=== PATIENT | female | born 1975 | race Caucasian/White ===

== ENCOUNTER 2017-05-06 22:14 | Inpatient (IN) | payer BC, OTHER ==
[~2017-05-06] VITALS: Ht 171.5 cm; Wt 66.0 kg
[2017-05-06 22:29] VITALS: O2SAT 97
[2017-05-06] MEDS ORDERED: SODIUM CHLORIDE 0.9% 1000ML 1,000 ML IV STA (23:22)
[2017-05-06] MEDS ORDERED: CARB200T PO (23:25)
[2017-05-06] MEDS ORDERED: ALPR-411 PO (23:25)
[2017-05-06] MEDS ORDERED: LEVO50TA6 PO (23:25)
[2017-05-06] MEDS ORDERED: MULTTAB58 PO (23:25)
[2017-05-06] MEDS ORDERED: RANI300T2 PO (23:25)
[2017-05-06] MEDS ORDERED: SERT100T PO (23:26)
[2017-05-06] MEDS ORDERED: SERT50TA PO (23:26)
[2017-05-06] MEDS ORDERED: PRT/20 PO (23:26)
[2017-05-06] MEDS ORDERED: SYMIN160 INH (23:28)
[2017-05-06] MEDS ORDERED: TIOT1AER2 INH (23:28)
[2017-05-06] MEDS ORDERED: VNTHFA/IN INH (23:28)
[2017-05-06] MEDS ORDERED: LURA40TA PO (23:28)
[2017-05-06 23:44] LABS: BASO % 0.9 %; BASO ABS # 0.07 K/uL (0-0.2); EOS % 4.3 %; EOS ABS # 0.32 K/uL (0-0.5); HEMATOCRIT 40.2 % (37-47); HEMOGLOBIN 13.9 g/dL (12.0-16.0); IG# 0.02 K/uL (0.00-0.02); LYMPH % 36.8 %; LYMPH ABS # 2.73 K/uL (1.2-3.4); MEAN CELL VOLUME 90.1 fL (80-100); MEAN CORPUSCULAR HEMOGLOBIN 31.2 pg (25-34); MEAN CORPUSCULAR HGB CONC 34.6 g/dl (32-36); MEAN PLATELET VOLUME 9.9 fL (7.4-10.4); MONO % 10.4 %; MONO ABS # 0.77 K/uL (0.11-0.59); NEUT % 47.3 %; PLATELET COUNT 312 K/uL (130-400); RED CELL DISTRIBUTION WIDTH CV 12.2 % (11.5-14.5); RED CELL DISTRIBUTION WIDTH SD 40.4 fL (36.4-46.3); WHITE BLOOD COUNT 7.41 K/uL (4.8-10.8)
--- NOTE | 2017-05-06 23:46 | EMERGENCY ROOM VISIT NOTE ---
History Report prepared by Ronnie: Jered Rodas Under the Supervision of: Dr. Britney Gillespie M.D. First contact with patient: 23:18 Chief Complaint: OVERDOSE (INTENTIONAL) Stated Complaint: OVERDOSE History of Present Illness The patient is a 41 year old female who presents to the Emergency Room with complaints of a Xanax overdose occurring around 1999. The patient states that she took 20 tabs of 0.5mg Xanax, and she drank a bottle of wine by herself at 8 PM. The patient states that her mom was diagnosed with pancreatic cancer, and the patient states that she has been getting worse. She states that she normally has 0-1 tabs Xanax per day on a regular basis. The patient's friend and primary provider states that she has half of the patient's prescription due to suicidal statements. Per the primary care provider, the patient has been having suicidal ideations for the past month since her mother got worse, and the primary care provider states that the patient posted a statement on Facebook implying intense and overdose this evening. The patient states that she did this to try to kill herself, but has never tried to harm herself previously. The patient denies any vomiting or any cutting or injuring herself. She denies any chance of , and she states that she does not normally drink, and she has not taken any other substances. She has a history of severe asthma and bipolar disorder. The PCP at the bedside also states she treats these illnesses. Source of History: patient Onset: 1999 Position: other (global) Quality: other (overdose) Timing: other (persistent) Associated Symptoms: No vomiting Note: Associated symptoms: Suicidal ideation. Review of Systems See HPI for pertinent positives & negatives. A total of 10 systems reviewed and were otherwise negative. Past Medical & Surgical Medical Problems: (1) Asthma (2) Bipolar disorder Social History Smoking Status: Never Smoker Marital Status: Housing Status: lives alone Occupation Status: employed Current/Historical Medications Scheduled Budesonide/Formoterol Fumarate (Symbicort 160/4.5 Inhaler ), 2 PUFFS INH HS Carbamazepine (Tegretol), 600 MG PO BID Levothyroxine Sodium (Levothyroxine Sodium), 1 TAB PO DAILY Lurasidone Hcl (Latuda), 40 MG PO HS Multiple Vitamin (Multivitamin), 1 TAB PO DAILY Oxcarbazepine (Trileptal), 600 MG PO BID Pantoprazole (Protonix), 20 MG PO BID Ranitidine Hcl (Zantac), 300 MG PO HS Sertraline Hcl (Zoloft), 50 MG PO HS Sertraline Hcl (Zoloft), 100 MG PO HS Tiotropium Sophia (Spiriva Respimat), 2 PUFFS INH HS Scheduled PRN Albuterol Hfa (Ventolin Hfa), 2 PUFFS INH Q6H PRN for SOB/Wheezing Alprazolam (Xanax), 0.5 MG PO TID PRN for Anxiety Allergies Coded Allergies: Sulfa Antibiotics (Verified Allergy, Severe, HIVES, 05/06/17) Erythromycin (Verified Allergy, Unknown, ANAPHYLAXIS, 05/06/17) Ibuprofen (Verified Allergy, Unknown, ANAPHYLAXIS, 05/06/17) Physical Exam Vital Signs Date Time Temp Pulse Resp B/P (MAP) Pulse Ox O2 Delivery O2 Flow Rate FiO2 05/07/17 07:44 81 05/07/17 07:28 88 18 106/59 96 Room Air 05/07/17 03:05 88 05/07/17 02:54 99 16 122/65 98 Room Air 05/07/17 00:05 92 14 97 05/07/17 00:00 112/70 05/06/17 23:50 98 20 96 05/06/17 23:45 114/73 05/06/17 23:35 98 17 97 05/06/17 23:30 117/77 05/06/17 23:20 101 15 96 05/06/17 23:15 118/72 05/06/17 23:05 97 14 97 05/06/17 23:01 94 05/06/17 23:01 121/75 05/06/17 22:50 101 21 05/06/17 22:45 103/63 05/06/17 22:44 102 18 96 05/06/17 22:30 123/73 05/06/17 22:29 97 Room Air 05/06/17 22:29 37.4 97 14 123/73 97 Room Air 05/06/17 22:28 121/71 05/06/17 22:16 126/74 Physical Exam Vital signs reviewed. General: Sedate but answering questions appropriately. HEENT: No scleral icterus, PERRLA, neck supple. Atraumatic. Cardiovascular: Regular rate and rhythm, no extra sounds. Pulmonary: Clear to auscultation bilaterally, normal work of breathing. Abdomen: Soft, nontender, nondistended, positive bowel sounds. Musculoskeletal: Atraumatic, no peripheral edema. Neurologic: Patient awake, drowsy but oriented x 3, speech is clear. Skin: Warm, dry, no rash Psych: Positive SI. Negative HI. Medical Decision & Procedures Laboratory Results 05/06/17 22:30 Red Blood Count 4.46, Mean Corpuscular Volume 90.1, Mean Corpuscular Hemoglobin 31.2, Mean Corpuscular Hemoglobin Concent 34.6, Mean Platelet Volume 9.9, Neutrophils (%) (Auto) 47.3, Lymphocytes (%) (Auto) 36.8, Monocytes (%) (Auto) 10.4, Eosinophils (%) (Auto) 4.3, Basophils (%) (Auto) 0.9, Neutrophils # (Auto ) 3.50, Lymphocytes # (Auto) 2.73, Monocytes # (Auto) 0.77, Eosinophils # (Auto ) 0.32, Basophils # (Auto) 0.07 05/06/17 22:30 Test 05/06/17 22:30 05/07/17 03:11 White Blood Count 7.41 K/uL (4.8-10.8) Red Blood Count 4.46 M/uL (4.2-5.4) Hemoglobin 13.9 g/dL (12.0-16.0) Hematocrit 40.2 % (37-47) Mean Corpuscular Volume 90.1 fL (80-100) Mean Corpuscular Hemoglobin 31.2 pg (25-34) Mean Corpuscular Hemoglobin Concent 34.6 g/dl (32-36) Platelet Count 312 K/uL (130-400) Mean Platelet Volume 9.9 fL (7.4-10.4) Neutrophils (%) (Auto) 47.3 % Lymphocytes (%) (Auto) 36.8 % Monocytes (%) (Auto) 10.4 % Eosinophils (%) (Auto) 4.3 % Basophils (%) (Auto) 0.9 % Neutrophils # (Auto) 3.50 K/uL (1.4-6.5) Lymphocytes # (Auto) 2.73 K/uL (1.2-3.4) Monocytes # (Auto) 0.77 K/uL (0.11-0.59) Eosinophils # (Auto) 0.32 K/uL (0-0.5) Basophils # (Auto) 0.07 K/uL (0-0.2) RDW Standard Deviation 40.4 fL (36.4-46.3) RDW Coefficient of Variation 12.2 % (11.5-14.5) Immature Granulocyte % (Auto) 0.3 % Immature Granulocyte # (Auto) 0.02 K/uL (0.00-0.02) Anion Gap 10.0 mmol/L (3-11) Est Creatinine Clear Calc Drug Dose 102.9 ml/min Estimated GFR () 124.7 Estimated GFR (Non- 107.6 BUN/Creatinine Ratio 9.5 (10-20) Calcium Level 9.1 mg/dl (8.5-10.1) Total Bilirubin 0.2 mg/dl (0.2-1) Direct Bilirubin < 0.1 mg/dl (0-0.2) Aspartate Amino Transf (AST/SGOT) 13 U/L (15-37) Alanine Aminotransferase (ALT/SGPT) 23 U/L (12-78) Alkaline Phosphatase 77 U/L (45-117) Total Protein 7.2 gm/dl (6.4-8.2) Albumin 4.2 gm/dl (3.4-5.0) Thyroid Stimulating Hormone (TSH) 2.660 uIu/ml (0.300-4.500) Salicylates Level < 1.7 mg/dl (2.8-20) Acetaminophen Level < 2 ug/ml (10-30) Ethyl Alcohol mg/dL 55.5 mg/dl (0-3) Urine Color YELLOW Urine Appearance CLEAR (CLEAR) Urine pH 6.5 (4.5-7.5) Urine Specific [place] 1.008 (1.000-1.030) Urine Protein NEG (NEG) Urine Glucose (UA) NEG (NEG) Urine Ketones NEG (NEG) Urine Occult Blood NEG (NEG) Urine Nitrite NEG (NEG) Urine Bilirubin NEG (NEG) Urine Urobilinogen NEG (NEG) Urine Leukocyte Esterase NEG (NEG) Urine Test NEG (NEG) Urine Opiates Screen NEG (NEG) Urine Methadone, Qualitative NEG (NEG) Urine Barbiturates NEG (NEG) Urine Phencyclidine (PCP) Level NEG (NEG) Ur Amphetamine/Methamphetamine NEG (NEG) MDMA (Ecstasy) Screen NEG (NEG) Urine Benzodiazepines Screen POS (NEG) Urine Cocaine Metabolite NEG (NEG) Urine Marijuana (THC) NEG (NEG) Laboratory results per my review. Medications Administered Medications (Trade) Dose Ordered Sig/Lita Route Start Time Stop Time Status Last Admin Dose Admin Sodium Chloride 1,000 ml @ 999 mls/hr Q1H1M STAT IV 05/06/17 23:22 05/07/17 00:22 DC 05/07/17 00:10 999 MLS/HR Potassium Chloride (Klor-Con M10) 40 meq NOW STAT PO 05/07/17 02:43 05/07/17 02:44 DC 05/07/17 02:54 40 MEQ Tiotropium Sophia (Spiriva Handihaler Inhaler) 2 puff NOW STAT INH 05/07/17 03:49 05/07/17 03:51 DC 05/07/17 06:34 2 PUFF Budesonide/ Formoterol Fumarate (Symbicort 160/ 4.5 Inh) 2 puffs NOW STAT INH 05/07/17 03:49 05/07/17 03:51 DC 05/07/17 06:34 2 PUFFS ECG Indication: toxicologic Rate (beats per minute): 92 Rhythm: normal sinus Findings: no acute ischemic change, no ectopy, other (Previous septal infarct) Change: Patient's electrocardiogram interpreted by me. ED Course 2318: Past medical records reviewed. The patient was evaluated in room C11. A complete history and physical examination was performed. 0054: The patient has been medically cleared. 2322: Sodium Chloride 1000 ml @ 999 mls/hr IV 0243: Potassium Chloride 40meq PO 0349: Symbicort 160/ 4.5 2 puffs INH, Tiotropium Sophia 2 Puffs INH 0720: I signed the patient's case to Dr. Santillan at the change of shift. The patient is waiting bed placement. Medical Decision Differential diagnosis: Etiologies such as mood disorder, infection, hypoglycemia, electrolyte abnormalities, cardiac sources, intracerebral event, toxicologic, neurologic, as well as others were entertained. This patient was evaluated and appeared to be in no significant distress. The patient was medically cleared after a call to poison control. There is significant doubt that the patient took as much medication as she states. Patient also states that she drank an entire bottle of wine however her blood alcohol is 55. She does admit that this was a suicide attempt. She hoped that she would . There is an inappropriate relationship between the patient's prescriber of Xanax and [place] in the past. She states she is the patient's "best friend" and PCP. The patient has made multiple suicidal statements over the last month. The patient's main support and PCP at the bedside feels it is inappropriate to admit the patient to the hospital as her mother is dying. At this time the patient is not voluntary for admission. I feel she is a danger to herself as evidenced by the overdose last evening. I feel she has significant triggers at home with her mother's poor health and is likely to harm herself again. A 302 petitioning statement was filed and signed by myself. 3 S. has evaluated the patient for inpatient management. Medication Reconcilliation Current Medication List: was personally reviewed by me Blood Pressure Screening Patient's blood pressure: Normal blood pressure Impression Primary Impression: Suicide attempt Additional Impressions: Medication overdose Alcohol intoxication Scribe Attestation The scribe's documentation has been prepared under my direction and personally reviewed by me in its entirety. I confirm that the note above accurately reflects all work, treatment, procedures, and medical decision making performed by me. Departure Information Dispostion Still a Patient Patient Instructions My [facility] Problem Qualifiers
[2017-05-07 00:07] LABS: ALBUMIN 4.2 gm/dl (3.4-5.0); ALT/SGPT 23 U/L (12-78); BLOOD UREA NITROGEN 7 mg/dl (7-18); CALCIUM 9.1 mg/dl (8.5-10.1); CARBON DIOXIDE 21 mmol/L (21-32); GLUCOSE 101 mg/dl (70-99); SODIUM 136 mmol/L (136-145)
[2017-05-07 00:10] LABS: ALKALINE PHOSPHATASE 77 U/L (45-117); AST/SGOT 13 U/L (15-37); TOTAL PROTEIN 7.2 gm/dl (6.4-8.2)
[2017-05-07] MEDS ORDERED: POTASSIUM CHLORIDE 10 MEQ TABCR PO STA (02:43)
[2017-05-07] MEDS ORDERED: TIOTROPIUM BROMIDE 5 PUFF/90 MCG INH INH STA (03:49)
[2017-05-07] MEDS ORDERED: BUDESONIDE/FORMOTEROL FUMARATE 160/4.5 60 PUFFS/INHALER INH STA (03:49)
[2017-05-07] MEDS ORDERED: OXCA600T3 PO (06:19)
[2017-05-07 07:28] VITALS: O2SAT 96
[2017-05-07] MEDS ORDERED: ACCL20 PO (09:11)
[2017-05-07] MEDS ORDERED: ACETAMINOPHEN 325 MG TAB PO PRN (09:15)
[2017-05-07] MEDS ORDERED: BISMUTH SUBSALICYLATE PER ML OMNICELL CHARGE PO PRN (09:15)
[2017-05-07] MEDS ORDERED: SODIUM CHLORIDE 0.65% NA SOLN 45 ML (OCEAN) PRN (09:15)
[2017-05-07] MEDS ORDERED: hydrOXYzine HCL 25 MG TAB PO PRN ×2 (09:15)
[2017-05-07] MEDS ORDERED: ALUMINUM/MAGNESIUM SUSP 30 ML UDC PO PRN (09:15)
[2017-05-07] MEDS ORDERED: MAGNESIUM HYDROXIDE SUSP 30 ML UDC PO PRN (09:15)
--- NOTE | 2017-05-07 10:14 | Psychiatric History & Physical ---
History Date of Service May 07, 2017. Identifying Data Ani Del Real is a 41-year-old female with a history of bipolar disorder who currently lives in [place], and was admitted 05/07/2017 on an involuntary 302 commitment after she presented to the emergency room by ambulance last night after a suicide attempt by overdose on alprazolam and alcohol. Chief Complaint "My mom has stage 4 cancer and is dying on hospice, and I really need to get home". History of Present Illness According to ER records, the patient presented to the emergency room by ambulance last night and reported an intentional overdose on 20 tablets of 0.5 mg alprazolam and a bottle of wine in a suicide attempt. She endorsed suicidal thoughts for the past month, triggered by worsening of her mother's health, as mother is diagnosed with pancreatic cancer. Her primary care provider, CASSI Arias, who prescribes her medications, was present with her in the emergency room and stated that she had been holding some of the patient's medications due to her suicidal thoughts. She also stated that the patient posted of statement on social media about her intent to overdose, and the patient admitted that she took the overdose to end her life. She said she does not normally drink alcohol, and denied other substance use. She was initially sedated and tachycardic, and drug screen was positive for benzodiazepines and alcohol level was 55.5. She was hypokalemic with a potassium of 3.0, and was given 40 mEq of potassium chloride. She also received IV fluids. EKG was normal sinus rhythm. She was monitored overnight in the emergency room, and assessed by the emergency room psychiatric field nurse case manager as well as the psychiatric liaison nurse. A 302 petition was completed by ER staff, and she was unwilling to consider voluntary admission, so was ultimately committed involuntarily. She was tearful in the emergency room, stating she did not care if she woke up or not, as her mother is dying, and she can't live without her. She described her mother as her best friend. When the emergency room physician asked her about the multiple Xanax prescription she's filled after reviewing the PDMP, she became defensive, and was secretive about her relationship with her outpatient provider, who stayed with her through the night in the emergency room, and was arguing with staff, wanting her to be released. When can help arrived, the patient became upset, was yelling and stating she could not stay in the hospital as she needed to get home to her mother and her pets. Per 302, the ER doctor felt she was high risk, lives alone, admitted to attempting to end her life, impulsive behavior, and lack of outpatient mental health treatment /appropriate follow up. On my assessment, the patient reports she needs to leave as her mother is dying , and wants to know how quickly she can be discharged. She says she is "overwhelmed, my mom's my best friend, it's so hard to watch her waste away..." She says she "drank some wine, took some Xanax, like 20." She says she "just wanted to calm myself down, and somebody had the bright idea of calling the ambulance." She says she doesn't know who called the ambulance, maybe "Anh, my best friend from [id number]." She says she left her mother's house around 8pm and went to her house, started drinking and then took the overdose. She says it was impulsive, and she does not normally drink. After taking the overdose, she lay down in bed, and then her friend/PCP Anh texted her and asked where she was, and then came and checked on her, and she thinks likely called the ambulance. She admits to writing a suicide note, stating "I can't live without my mom, had a fight with my brother, felt like no one cared...felt alone." She admits she doesn't remember what happened after she got to the hospital. She denies that she was thinking about suicide prior to last night. She reports a history of depression and anxiety, "I'm never an upbeat person." Mood has been lower for the past couple of months in the context of her mother's worsening health. She is resistant to answering questions about her symptoms, repeatedly asking to leave, but denies weight changes. She reports only occasional use of Xanax, once every few weeks. She has been on lurasidone, oxcarbazepine, and sertraline for "a long time" and thinks that they help. Denies that doses have heather adjusted recently. Takes Z-Quil to sleep for years, "otherwise I can't sleep." Says she was diagnosed with bipolar in the , because "I was angry, throwing stuff, have no control of my emotions, would do stuff then 5 minutes later feel bad about it." She denies ever having a period of decreased need for sleep, increased energy, elevated mood, racing thoughts, AVH, paranoia, or PTSD. She says she has OCD, meaning "everything has to be in it's own space." At times she will turn the light switch off and on 4 times to "feel like it's right," but this has not happened in years. Denies counting, excessive cleaning or handwashing. Thinks her meds have helped with this. Says her friend Anh is her primary and only support. She has not been going to therapy regularly. She is a difficult historian, frequently derailing and listing all the reasons she needs to leave, including her dog, her house, her mom, her coal stove, her job. Spoke with CASSI Arias, who says she is concerned as she doesn't want the patient to miss saying goodbye to her mother, although she also said she understands the need for the 302. Asked her to fill in what happened last night , as patient was not able to recall some of it. She states the patient's mother has been going downhill for the past month, with lots of complications, and was discharged from the hospital a week ago. Her father is 81 and her brother is "not a great support," so Ani has been providing a lot of the hands-on care for her mother. She thinks this "was the breaking point" for her. She had made comments that she didn't know how to live without her mother, but hadn't made suicidal statements. Anh was at Ani's mother's house with her, helping to bathe her, and her phone "started blowing up," as the patient was texting her about the overdose, also texted her boss (who called 911) and posted it on social media. Anh and the patient's brother went to Ani's house and she came with her to the hospital. She works with Dr. Ponce and treats Ani at a PCP's office in [place]. She has never observed manic symptoms, but had noted anger outbursts. She thinks the lurasidone has helped to stabilize her. Past Psychiatric History Current OP Treatment: therapist (Gilda Walter, [place] - on and off for years) Prior OP Treatment: psychiatrist (saw Dr. Green briefly but felt it wasn't helpful) Prior Psych Hospitalizations: none Access to a Gun: No Suicide Attempts: No Past Medication Trials Denies Additional Notes States she has been treated for mood and anxiety symptoms since 1999, initially with Dr. Valdes, several other physicians over the years, and has been seeing her friend Anh who is a CASE FILLER for years. Says she was diagnosed with bipolar "in the ." Past Medical/Surgical History (1) Asthma (2) Hypothyroid (3) GERD (gastroesophageal reflux disease) PCP is CASSI Arias in [place] A1 (spontaneous at 18 weeks) Allergies Allergies: Coded Allergies: Sulfa Antibiotics (Verified Allergy, Severe, HIVES, 05/06/17) Erythromycin (Verified Allergy, Unknown, ANAPHYLAXIS, 05/06/17) Ibuprofen (Verified Allergy, Unknown, ANAPHYLAXIS, 05/06/17) Home Medications Scheduled Budesonide/Formoterol Fumarate (Symbicort 160/4.5 Inhaler ), 2 PUFFS INH HS Levothyroxine Sodium (Levothyroxine Sodium), 1 TAB PO DAILY Multiple Vitamin (Multivitamin), 1 TAB PO DAILY Oxcarbazepine (Trileptal), 600 MG PO BID Pantoprazole (Protonix), 40 MG PO BID Ranitidine Hcl (Zantac), 300 MG PO HS Sertraline Hcl (Zoloft), 150 MG PO HS Tiotropium [place] (Spiriva Respimat), 2 PUFFS INH BID Zafirlukast (Zafirlukast), 20 MG PO BID Scheduled PRN Alprazolam (Xanax), 0.5 MG PO TID PRN for Anxiety Family History History of Suicide: Yes (great grandfather) History of Substance Abuse: No Psychiatric History: Yes (grandfatehr - inpatient treatment, aunt bipolar, mother undiagnosed mental illness) Alcohol Use Alcohol Use In Past 12 Months: Yes (1/2 bottle of wine last night, otherwise no ETOH) Smoking Use Smoking Status: Never Smoker Substance History Denies. Personal History Lives in: [place] Childhood: Raised by both parents in [place]. One brother, whom she has a poor relationship with. Father and mother still live together. 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 States she has to go back to work on Thursday, "or I'll lose my job." Relationship History: (2006) Children: none Spiritual Affiliation: Sabianism - attends [employer] Psychological Trauma History: Significant Loss ("my mom dying") Review of Systems 10 systems reviewed, all negative except as stated above. Examination Physical Examination A physical exam was performed in the ER prior to admission to the unit by Dr. Gillespie. I accept that physical as correct/medical clearance for the inpatient physical exam. Vital Signs Vital Signs Past 12 Hours Date Time Temp Pulse Resp B/P (MAP) Pulse Ox O2 Delivery O2 Flow Rate FiO2 05/07/17 07:44 81 05/07/17 07:28 88 18 106/59 96 Room Air 05/07/17 03:05 88 05/07/17 02:54 99 16 122/65 98 Room Air 05/07/17 00:05 92 14 97 05/07/17 00:00 112/70 05/06/17 23:50 98 20 96 05/06/17 23:45 114/73 05/06/17 23:35 98 17 97 05/06/17 23:30 117/77 05/06/17 23:20 101 15 96 05/06/17 23:15 118/72 05/06/17 23:05 97 14 97 05/06/17 23:01 94 05/06/17 23:01 121/75 05/06/17 22:50 101 21 05/06/17 22:45 103/63 05/06/17 22:44 102 18 96 05/06/17 22:30 123/73 05/06/17 22:29 97 Room Air 05/06/17 22:29 37.4 97 14 123/73 97 Room Air 05/06/17 22:28 121/71 05/06/17 22:16 126/74 Laboratory Results Last 24 Hours Test 05/06/17 22:30 05/07/17 03:11 White Blood Count 7.41 K/uL Red Blood Count 4.46 M/uL Hemoglobin 13.9 g/dL Hematocrit 40.2 % Mean Corpuscular Volume 90.1 fL Mean Corpuscular Hemoglobin 31.2 pg Mean Corpuscular Hemoglobin Concent 34.6 g/dl Platelet Count 312 K/uL Mean Platelet Volume 9.9 fL Neutrophils (%) (Auto) 47.3 % Lymphocytes (%) (Auto) 36.8 % Monocytes (%) (Auto) 10.4 % Eosinophils (%) (Auto) 4.3 % Basophils (%) (Auto) 0.9 % Neutrophils # (Auto) 3.50 K/uL Lymphocytes # (Auto) 2.73 K/uL Monocytes # (Auto) 0.77 K/uL Eosinophils # (Auto) 0.32 K/uL Basophils # (Auto) 0.07 K/uL RDW Standard Deviation 40.4 fL RDW Coefficient of Variation 12.2 % Immature Granulocyte % (Auto) 0.3 % Immature Granulocyte # (Auto) 0.02 K/uL Sodium Level 136 mmol/L Potassium Level 3.0 mmol/L Chloride Level 104 mmol/L Carbon Dioxide Level 21 mmol/L Anion Gap 10.0 mmol/L Blood Urea Nitrogen 7 mg/dl Creatinine 0.70 mg/dl Est Creatinine Clear Calc Drug Dose 102.9 ml/min Estimated GFR () 124.7 Estimated GFR (Non- 107.6 BUN/Creatinine Ratio 9.5 Random Glucose 101 mg/dl Calcium Level 9.1 mg/dl Total Bilirubin 0.2 mg/dl Direct Bilirubin < 0.1 mg/dl Aspartate Amino Transf (AST/SGOT) 13 U/L Alanine Aminotransferase (ALT/SGPT) 23 U/L Alkaline Phosphatase 77 U/L Total Protein 7.2 gm/dl Albumin 4.2 gm/dl Thyroid Stimulating Hormone (TSH) 2.660 uIu/ml Salicylates Level < 1.7 mg/dl Acetaminophen Level < 2 ug/ml Ethyl Alcohol mg/dL 55.5 mg/dl Urine Color YELLOW Urine Appearance CLEAR Urine pH 6.5 Urine Specific Lewis 1.008 Urine Protein NEG Urine Glucose (UA) NEG Urine Ketones NEG Urine Occult Blood NEG Urine Nitrite NEG Urine Bilirubin NEG Urine Urobilinogen NEG Urine Leukocyte Esterase NEG Urine Test NEG Urine Opiates Screen NEG Urine Methadone, Qualitative NEG Urine Barbiturates NEG Urine Phencyclidine (PCP) Level NEG Ur Amphetamine/Methamphetamine NEG MDMA (Ecstasy) Screen NEG Urine Benzodiazepines Screen POS Urine Cocaine Metabolite NEG Urine Marijuana (THC) NEG Mental Examination During interview pt is: alert and oriented, other (partially cooperative) Appearance: disheveled, other (wearing pajamas and wrapped in a blanket, tearful and irritable) Eye contact is: fair Motor behavior is: steady gait & station, no abnormal motor movements Speech: other (angry tone at times) Affect: depressed, tearful, anxious Mood is: depressed, anxious Thought process: perseveration (on being discharged) Thought content: preoccupation (on being discharged and all the reasons she needs to leave [facility]) Suicidal thought are: denied (but admits to an overdose in a suicide attempt last night) Homicidal thoughts are: denied Hallucinations: denies auditory, denies visual Cognition: language grossly intact, other (memory impaired for the events after her overdose) Intelligence estimated to be: average Insight: impaired Judgement: impaired Impression / Recommendations Impression 41-year-old white female with a reported history of bipolar disorder, although she does not meet criteria for bipolar type I or 2, and anxiety who is being treated by a CASE FILLER in [place] whom she also identifies as her "best friend," and to presented via ambulance after a suicide attempt by overdose on wine and alprazolam last night. She wrote a suicide note, and admitted to emergency room staff that she intended to end her life, but is now very upset about being admitted and is focused only on discharge. She requires inpatient treatment due to the severity of her symptoms and the risk for suicide if discharged prematurely. I reviewed with her that at minimum, we would need to monitor her for a period to ensure that she feels safe, that mood has stabilized , and work on a good safety plan, including follow-up with a psychiatrist, regular therapy appointments, ensure that she has good supports and a plan to limit her access to the means with which to hurt herself. Inventory Assets Strengths: Employed, has therapist, has housing Needs: Increased outpatient care, including follow-up with a psychiatrist in regular therapy appointments Risk Factors Assessment : Yes /single/: Yes Higher / Fall in social status: No Access to guns: No Health problems: Yes Mental Health Diagnoses: Yes Substance use disorders: No Previous attempt: No Family history of suicide: No Previous psychiatric stay: No Hopelessness: No Smoker: No Protective Factors Assessment Uatsdin beliefs: Yes : No Responsible for young children: No Employed: Yes Stable relationships: No Supportive family: Yes Good rapport with provider: Yes Recommendations (1) Suicide attempt Admit on a 302 involuntary commitment. Suicide checks for safety. Explore stressors in group/therapy, work on healthy coping skills, ways to increase outpatient supports, and discharge safety plan. (2) Medication overdose 05/07 - D/c alprazolam due to OD, and monitor for signs of withdrawal. Will need a good safety plan to include no access to large amounts of pills or guns. (3) Depression 05/07 - Although the patient reports a history of bipolar disorder, she denies all symptoms consistent with a manic or hypomanic episode, and instead describes brief episodes of anger. Nevertheless, she feels that her current medications have been helpful for mood and would like to continue them. For now we will continue oxcarbazepine 600 mg twice a day, sertraline 150 mg daily at bedtime, and need to confirm dose of lurasidone. - Spoke with her OP CASE FILLER who confirmed 40mg daily. She also agreed that the patient should see a psychiatrist. - Fasting labs ordered for tomorrow. - Get WENDY to coordinate care with her outpatient provider, who she also says is her best friend, to review questions about diagnosis and concerns that perhaps she would be better served to see someone whom she does not have a personal relationship with and who specializes in mental health. - Coordinate care with therapist, Gilda Walter in [place], and recommend weekly therapy. Refer for outpatient psychiatry. - Recommend family meeting, and explore ways to increase outpatient supports as she feels overwhelmed in dealing with her mother's illness and pending that (4) Asthma Continue home meds. (5) GERD (gastroesophageal reflux disease) Continue home dose of Protonix and Zantac. (6) Hypothyroid Continue home dose of levothyroxine. TSH normal. CPT Code Initial Hospital Care: 81209 Problem Qualifiers (1) Depression: Depression Type: major depressive disorder Major depression recurrence: recurrent Major depression episode severity: severe Psychotic features: without psychotic features
--- NOTE | 2017-05-07 10:38 | EMERGENCY ROOM VISIT NOTE ---
ED Visit Note Patient admitted to 3 S., 302.
[2017-05-07 10:39] VITALS: BP 109/63; PULSE 81; TEMP 36.6; Ht 171.5 cm; Wt 66.0 kg
[2017-05-07] MEDS ORDERED: [UNRECOGNIZED DRUG - REMARK] SCH (11:00)
[2017-05-07] MEDS ORDERED: NURSING VERBAL MED ORDER ONE ×4 (12:00→17:15)
[2017-05-07 13:37] VITALS: BP 106/70; PULSE 73; TEMP 36.4
[2017-05-07] MEDS ORDERED: [UNRECOGNIZED DRUG - OTHER] SCH (16:00)
[2017-05-07 16:11] VITALS: BP 107/70; PULSE 76; TEMP 36.4
[2017-05-07] MEDS ORDERED: IPRASOL4 INH (16:58)
[2017-05-07] MEDS ORDERED: ALBUTEROL HFA 8 GM INHALER INH PRN (17:00)
[2017-05-07] MEDS ORDERED: ALBUT/IPRATROP 3MG/0.5MG NEB 3 ML VIAL INH PRN (17:30)
[2017-05-07] MEDS ORDERED: LURA40TA PO (19:43)
--- NOTE | 2017-05-07 19:48 | Psych Management Progress Note ---
Psychiatry Miscellaneous Date of Service: May 07, 2017. Case reviewed as community service coordinator and agricultural economics professor psychiatrist as family friend (PCP prescriber of benzos on which patient OD'd) advocating for discharge, reportedly threatening to involve an family law attorney. long term care administrator and unit nurse meeting with patient/family. Documentation clearly outlines suicide attempt on combo of ETOH and benzos, clear intent with social media post type suicide note (reported). Documentation also notes that family friend was trying to limit access to meds prior to the OD. Patient has made statements about not being able to live without mother so her passing would also be a trigger for patient. Requesting Benadryl in place of Vistaril for prn for sleep and reported to staff taking Ximena hs.
[2017-05-07] MEDS ORDERED: NON-FORMULARY MEDICATION (Pantoprazole (Protonix) 20 MG) PO SCH (21:00)
[2017-05-07] MEDS: ZAFIRLUKAST TAB 20 MG TAB PO SCH (21:14)
[2017-05-07] MEDS: OXCARBAZEPINE 150 MG TAB PO SCH (21:15)
[2017-05-07] MEDS ORDERED: RANITIDINE HCL 150 MG TAB PO SCH (22:00)
[2017-05-07] MEDS ORDERED: BUDESONIDE/FORMOTEROL FUMARATE 160/4.5 60 PUFFS/INHALER INH SCH (22:00)
[2017-05-07] MEDS ORDERED: LURASIDONE HCL 40 MG TAB PO SCH (22:00)
[2017-05-07] MEDS ORDERED: SERTRALINE HCL 50 MG TAB PO SCH (22:00)
[2017-05-08 06:33] VITALS: BP_SYST 105; BP_SYST 89; BP_DIAS 53; BP_DIAS 70; PULSE 74; PULSE 96; TEMP 36.7
[2017-05-08] MEDS ORDERED: LEVOTHYROXINE 50 MCG TAB PO SCH (08:00)
[2017-05-08 08:04] VITALS: BP 127/76; PULSE 108; TEMP 36.8
[2017-05-08] MEDS ORDERED: MULTIVITAMIN TAB PO SCH (09:00)
[2017-05-08] MEDS ORDERED: PANTOprazole SOD 40 MG TAB PO SCH (09:00)
[2017-05-08] MEDS: ZAFIRLUKAST TAB 20 MG TAB PO SCH (09:09)
[2017-05-08] MEDS: OXCARBAZEPINE 150 MG TAB PO SCH (09:10)
--- NOTE | 2017-05-08 09:31 | Discharge Instructions ---
Discharge Information Report Includes Report will include the: Discharge Instructions & Summary Admission Admission Date / Time: May 07, 2017 at 09:03 Reason for Admission: Suicide Attempt Discharge Discharge Diagnosis / Problem: same Condition at Discharge: leaving AMA Discharge Goals Goal(s): Improve disease control, Specific goals (safety plan) Activity Recommendations Activity Limitations: resume your previous activity . Instructions / Follow-Up Instructions / Follow-Up . SPECIAL CARE INSTRUCTIONS: 1. Follow through with your scheduled aftercare appointments. If unable to keep an appointment, please call to reschedule. 2. Take your medication only as prescribed. Medication should not be changed or stopped without the approval of your doctor. In the event of worsening symptoms or concerns about side effects, contact your doctor immediately. 3. Utilize new healthy coping skills, anger management skills, and stress management skills learned during your hospitalization. Journal feelings and process them with a support person. Identify stressors or situations that may result in relapse, deterioration or inappropriate behaviors and develop a plan to deal with those issues. 4. If your coping skills are ineffective and you are in crisis, contact your outpatient providers for direction. If unable to reach your providers, please call the CAN HELP LINE AT or go to the closest Emergency Room. 5. Avoid alcohol and un-prescribed drugs. 6. You have been provided with the Mental Health Advance Directives Pamphlet for your review. AFTERCARE APPOINTMENTS: * Please call your insurance company prior to your scheduled appointment to confirm your aftercare providers are covered. Take your insurance information to your appointments. . Discharge / Aftercare Planning Therapist: Name Of Therapist: Gilda Walter ([place]) Pouncer: Name: N/A social services counselor to confirm follow-up appointments/notify Gilda Walter. Supervising physician for current prescriber Dr. Ponce indicated to Dr. Jesus that available for interim care as CASSI Kamara on medical leave. Psychiatry referral to [facility] is in works by social work at the time of preparation of this document. . Follow-Up Care Plan for Follow-Up Care: see above. Patient agrees to abstain from alcohol and utilize supports with Hospice. She will be residing with her father at discharge rather than alone. Prescriber and father confirmed no access to benzodiazepines. Current Hospital Diet Patient's current hospital diet: Regular Diet Discharge Diet Recommended Diet: Regular Diet Procedures Procedures Performed: Yes List Procedure(s) Performed: EKG 05/06 Pending Studies Pending Studies at Discharge: No Medical Emergencies . Who to Call and When: Medical Emergencies: For questions or emergencies related to your hospital stay, please contact the Inpatient Behavioral Health Unit at [phone]. A varnish mixer is on-call 27/10 for the Behavioral Health Unit for emergencies At any time you feel your situation is an emergency, you may also call 911 immediately. . Non-Emergent Contact Non-Emergency issues call your: Primary Care Provider Call Non-Emergent contact if: you have any medication questions Advance Directives Existing Advance Directive: No Do You Have an Existing Mental: No Existing Living Will: No Existing Power of Blister Pack Operator: No Advance Directives Info Given: To Pt/S.O. Advance Directives Reason: Declines as Mental Health Visit. Discharge Summary Admission HPI Per the Admitting provider: According to ER records, the patient presented to the emergency room by ambulance last night and reported an intentional overdose on 20 tablets of 0.5 mg alprazolam and a bottle of wine in a suicide attempt. She endorsed suicidal thoughts for the past month, triggered by worsening of her mother's health, as mother is diagnosed with pancreatic cancer. Her primary care provider, CASSI Arias, who prescribes her medications, was present with her in the emergency room and stated that she had been holding some of the patient's medications due to her suicidal thoughts. She also stated that the patient posted of statement on social media about her intent to overdose, and the patient admitted that she took the overdose to end her life. She said she does not normally drink alcohol, and denied other substance use. She was initially sedated and tachycardic, and drug screen was positive for benzodiazepines and alcohol level was 55.5. She was hypokalemic with a potassium of 3.0, and was given 40 mEq of potassium chloride. She also received IV fluids. EKG was normal sinus rhythm. She was monitored overnight in the emergency room, and assessed by the emergency room psychiatric onsite case manager as well as the psychiatric liaison nurse. A 302 petition was completed by ER staff, and she was unwilling to consider voluntary admission, so was ultimately committed involuntarily. She was tearful in the emergency room, stating she did not care if she woke up or not, as her mother is dying, and she can't live without her. She described her mother as her best friend. When the emergency room physician asked her about the multiple Xanax prescription she's filled after reviewing the PDMP, she became defensive, and was secretive about her relationship with her outpatient provider, who stayed with her through the night in the emergency room, and was arguing with staff, wanting her to be released. When can help arrived, the patient became upset, was yelling and stating she could not stay in the hospital as she needed to get home to her mother and her pets. Per 302, the ER doctor felt she was high risk, lives alone, admitted to attempting to end her life, impulsive behavior, and lack of outpatient mental health treatment /appropriate follow up. On my assessment, the patient reports she needs to leave as her mother is dying , and wants to know how quickly she can be discharged. She says she is "overwhelmed, my mom's my best friend, it's so hard to watch her waste away..." She says she "drank some wine, took some Xanax, like 20." She says she "just wanted to calm myself down, and somebody had the bright idea of calling the ambulance." She says she doesn't know who called the ambulance, maybe "Anh, my best friend from [place]." She says she left her mother's house around 8pm and went to her house, started drinking and then took the overdose. She says it was impulsive, and she does not normally drink. After taking the overdose, she lay down in bed, and then her friend/PCP Anh texted her and asked where she was, and then came and checked on her, and she thinks likely called the ambulance. She admits to writing a suicide note, stating "I can't live without my mom, had a fight with my brother, felt like no one cared...felt alone." She admits she doesn't remember what happened after she got to the hospital. She denies that she was thinking about suicide prior to last night. She reports a history of depression and anxiety, "I'm never an upbeat person." Mood has been lower for the past couple of months in the context of her mother's worsening health. She is resistant to answering questions about her symptoms, repeatedly asking to leave, but denies weight changes. She reports only occasional use of Xanax, once every few weeks. She has been on lurasidone, oxcarbazepine, and sertraline for "a long time" and thinks that they help. Denies that doses have heather adjusted recently. Takes Z-Quil to sleep for years, "otherwise I can't sleep." Says she was diagnosed with bipolar in the , because "I was angry, throwing stuff, have no control of my emotions, would do stuff then 5 minutes later feel bad about it." She denies ever having a period of decreased need for sleep, increased energy, elevated mood, racing thoughts, AVH, paranoia, or PTSD. She says she has OCD, meaning "everything has to be in it's own space." At times she will turn the light switch off and on 4 times to "feel like it's right," but this has not happened in years. Denies counting, excessive cleaning or handwashing. Thinks her meds have helped with this. Says her friend Anh is her primary and only support. She has not been going to therapy regularly. She is a difficult historian, frequently derailing and listing all the reasons she needs to leave, including her dog, her house, her mom, her coal stove, her job. Spoke with CASSI Arias, who says she is concerned as she doesn't want the patient to miss saying goodbye to her mother, although she also said she understands the need for the 302. Asked her to fill in what happened last night , as patient was not able to recall some of it. She states the patient's mother has been going downhill for the past month, with lots of complications, and was discharged from the hospital a week ago. Her father is 81 and her brother is "not a great support," so Ani has been providing a lot of the hands-on care for her mother. She thinks this "was the breaking point" for her. She had made comments that she didn't know how to live without her mother, but hadn't made suicidal statements. Anh was at Ani's mother's house with her, helping to bathe her, and her phone "started blowing up," as the patient was texting her about the overdose, also texted her boss (who called 911) and posted it on social media. Anh and the patient's brother went to Ani's house and she came with her to the hospital. She works with Dr. Ponce and treats Ani at a PCP's office in [place]. She has never observed manic symptoms, but had noted anger outbursts. She thinks the lurasidone has helped to stabilize her. Hospital Course (1) Suicide attempt Admit on a 302 involuntary commitment. Suicide checks for safety. Explore stressors in group/therapy, work on healthy coping skills, ways to increase outpatient supports, and discharge safety plan. (2) Medication overdose 05/07 - D/c alprazolam due to OD, and monitor for signs of withdrawal. Will need a good safety plan to include no access to large amounts of pills or guns. (3) Depression 05/07 - Although the patient reports a history of bipolar disorder, she denies all symptoms consistent with a manic or hypomanic episode, and instead describes brief episodes of anger. Nevertheless, she feels that her current medications have been helpful for mood and would like to continue them. For now we will continue oxcarbazepine 600 mg twice a day, sertraline 150 mg daily at bedtime, and need to confirm dose of lurasidone. - Spoke with her OP IMMUNOLOGY TEACHER who confirmed 40mg daily. She also agreed that the patient should see a psychiatrist. - Fasting labs ordered for tomorrow. - Get WENDY to coordinate care with her outpatient provider, who she also says is her best friend, to review questions about diagnosis and concerns that perhaps she would be better served to see someone whom she does not have a personal relationship with and who specializes in mental health. - Coordinate care with therapist, Gilda Walter in [place], and recommend weekly therapy. Refer for outpatient psychiatry. - Recommend family meeting, and explore ways to increase outpatient supports as she feels overwhelmed in dealing with her mother's illness and pending that (4) Asthma Continue home meds. (5) GERD (gastroesophageal reflux disease) Continue home dose of Protonix and Zantac. (6) Hypothyroid Continue home dose of levothyroxine. TSH normal. Risk Factors Assessment : Yes /single/: Yes Higher / Fall in social status: No Health problems: Yes Mental Health Diagnoses: Yes Substance use disorders: No Previous attempt: No Family history of suicide: No Previous psychiatric stay: No Hopelessness: No Smoker: No Protective Factors Assessment Pentecostal beliefs: Yes : No Responsible for young children: No Employed: Yes Stable relationships: No Supportive family: Yes Good rapport with provider: Yes Day of Discharge Assessment Patient and family were advocating with hospital discharge last night. A family meeting was held earlier in the day to outline safety plan on return home and plan to increase supports. Patient maintains that the social media post was a general sadness about her mother and denied suicidal intent, statements about SI were while under the influence and she has consistently denied SI since admission. Mother has been decompensating at home on Hospice and all report that is imminent. Patient is aware that providers feel that she has not had adequate time to process the attempt but recognize desire for compassionate release. Now that it is business hours and can reiterate safety plan and arrange for appropriate f/u appointments, as community resource consultant, I feel patient no longer meets criteria for involuntary inpatient hospitalization. Patient is not psychotic and there is no ongoing delirium/ intoxication impacting her ability to make medical decisions. She denies SI and several risks have been mitigated. Reviewed risks associated with AMA discharge and she continues to request AMA discharge and this is supported by her friend/family. Laboratory Test 05/06/17 22:30 05/07/17 03:11 05/08/17 08:13 White Blood Count 7.41 Red Blood Count 4.46 Hemoglobin 13.9 Hematocrit 40.2 Mean Corpuscular Volume 90.1 Mean Corpuscular Hemoglobin 31.2 Mean Corpuscular Hemoglobin Concent 34.6 Platelet Count 312 Mean Platelet Volume 9.9 Neutrophils (%) (Auto) 47.3 Lymphocytes (%) (Auto) 36.8 Monocytes (%) (Auto) 10.4 Eosinophils (%) (Auto) 4.3 Basophils (%) (Auto) 0.9 Neutrophils # (Auto) 3.50 Lymphocytes # (Auto) 2.73 Monocytes # (Auto) 0.77 Eosinophils # (Auto) 0.32 Basophils # (Auto) 0.07 RDW Standard Deviation 40.4 RDW Coefficient of Variation 12.2 Immature Granulocyte % (Auto) 0.3 Immature Granulocyte # (Auto) 0.02 Sodium Level 136 Potassium Level 3.0 Pending Chloride Level 104 Carbon Dioxide Level 21 Anion Gap 10.0 Blood Urea Nitrogen 7 Creatinine 0.70 Est Creatinine Clear Calc Drug Dose 102.9 Estimated GFR () 124.7 Estimated GFR (Non- 107.6 BUN/Creatinine Ratio 9.5 Random Glucose 101 Calcium Level 9.1 Total Bilirubin 0.2 Direct Bilirubin < 0.1 Aspartate Amino Transferase (AST) 13 Alanine Aminotransferase (ALT) 23 Alkaline Phosphatase 77 Total Protein 7.2 Albumin 4.2 Thyroid Stimulating Hormone (TSH) 2.660 Salicylates Level < 1.7 Acetaminophen Level < 2 Ethyl Alcohol mg/dL 55.5 Urine Color YELLOW Urine Appearance CLEAR Urine pH 6.5 Urine Specific [place] 1.008 Urine Protein NEG Urine Glucose (UA) NEG Urine Ketones NEG Urine Occult Blood NEG Urine Nitrite NEG Urine Bilirubin NEG Urine Urobilinogen NEG Urine Leukocyte Esterase NEG Urine Test NEG Urine Opiates Screen NEG Urine Methadone, Qualitative NEG Urine Barbiturates NEG Urine Phencyclidine (PCP) Level NEG Ur Amphetamine/Methamphetamine NEG MDMA (Ecstasy) Screen NEG Urine Hydroxyalprazolam Confirm Pending Urine Benzodiazepines Screen POS 7-Amino Clonazepam Level Pending Urine Nordiazepam Confirmation Pending Urine Hydroxyethylflurazepam Level Pending Urine Lorazepam (GC/MS) Pending Urine Oxazepam Confirm (GC/MS) Pending Urine Temazepam Confirmation Pending Urine Hydroxytriazolam Confirmation Pending Urine Hydroxymidazolam Confirmation Pending Urine Cocaine Metabolite NEG Urine Marijuana (THC) NEG Fasting Glucose Pending Triglycerides Level Pending Cholesterol Level Pending HDL Cholesterol Pending LDL Cholesterol, Calculated Pending VLDL Cholesterol, Calculated Pending Cholesterol/HDL Ratio Pending Total Time Total Time Spent (min): Greater than 30 minutes Total Time Included: examination of the patient, discharge planning, medication reconciliation Tobacco Cessation at Discharge Smoking Status: Never Smoker FDA approved Prescription: non-smoker Problem Qualifiers (1) Depression: Depression Type: major depressive disorder Major depression recurrence: recurrent Major depression episode severity: severe Psychotic features: without psychotic features
[2017-05-08 09:35] LABS: POTASSIUM 3.8 mmol/L (3.5-5.1)
--- NOTE | 2017-05-08 10:10 | Psych Management Progress Note ---
Psychiatry Miscellaneous Date of Service: May 08, 2017. decision to allow AMA discharge reviewed with admitting provider and Elvia Henry RN. I participated in the patient's treatment team. I did contact hospital securities attorney Mariama Alvarez to review the boundary/prescribing issues by outpatient INTERTYPE OPERATOR related to the case and am awaiting direction on report to licensing board. Collaborating MD aware and confirmed INTERTYPE OPERATOR involved is on medical leave.
== END 2017-05-08 10:20 | disposition left against medical advice (07) | DRG 885 ==
LOC: EDBD 22:14 → C.EDC 22:15 → C.MHU 05-07 09:03
PROVIDERS: ADMIT Psychiatry & Neurology Psychiatry; ATTEND Psychiatry & Neurology Psychiatry
DX: F33.2 Major depressive disorder, recurrent severe without psychotic features (principal); R45.851 Suicidal ideations; T42.4X2A Poisoning by benzodiazepines, intentional self-harm, initial encounter; J45.909 Unspecified asthma, uncomplicated; E03.9 Hypothyroidism, unspecified; K21.9 Gastro-esophageal reflux disease without esophagitis; Z79.899 Other long term (current) drug therapy; Z88.2 Allergy status to sulfonamides; Z88.1 Allergy status to other antibiotic agents; Z88.6 Allergy status to analgesic agent; Z81.8 Family history of other mental and behavioral disorders